=== PATIENT | male | born 1975 | race Two or more races ===

== ENCOUNTER 2024-05-11 12:51 | Emergency (ER) | payer OTHER ==
[~2024-05-11] VITALS: Ht 167.6 cm; Wt 108.9 kg
[~2024-05-11 12:51] MED LIST: INTESTINEX680 M1 PO; LEVSIN/SL0.125 MG SL; NEURONTIN300 MG PO; OMEPRAZOLE20 MG
[2024-05-11] MEDS ORDERED: 0.9 % SODIUM CHLORIDE 1,000 ML IV SCH (13:30)
[2024-05-11] MEDS ORDERED: BARIUM SULFATE 450 ML ORAL.SUSP PO ONE (13:42)
[2024-05-11 14:11] LABS: HEMATOCRIT 34.4 % (39.0-48.0); HEMOGLOBIN 11.5 g/dL (13-16.00); MEAN CELL VOLUME 87.2 fL (80.0-100.00); MEAN CORPUSCULAR HGB CONC 33.3 g/dl (32.0-36.0); PLATELET COUNT 251 K/uL (150-450); RED BLOOD COUNT 3.95 M/uL (4.00-6.00); RED CELL DISTRIBUTION WIDTH 14.1 % (11.5-14.5)
[2024-05-11 14:39] LABS: INR 1.02; PARTIAL THROMBOPLASTIN TIME 25.3 SECONDS (22.0-34.0); PROTHROMBIN TIME 11.1 SECONDS (9.0-11.5)
[2024-05-11 14:44] LABS: CALCIUM 8.8 mg/dL (8.5-10.1); CREATININE SERUM 0.98 mg/dL (0.70-1.30); GFR 81.63; POTASSIUM 4.67 mEq/L (3.5-5.1)
[2024-05-11 16:06] LABS: PH,URINE 5.5 (5.0-8.0); URINE APPEARANCE Clear; URINE BILIRRUBIN Negative (NEGATIVE); URINE BLOOD Negative; URINE COLOR Yellow; URINE GLUCOSE Negative (NEGATIVE); URINE KETONE Negative (NEGATIVE); URINE LEUKOCYTE Negative; URINE NITRATE Negative; URINE PROTEIN Trace (NEGATIVE)
[2024-05-11 16:10] LABS: URINE BACTERIA 58.7 uL (0.0-1933); URINE EPITHELIAL CELLS 22.3 uL (0.0-38.8); URINE RBC 2.6 uL (0.0-20.8); URINE WBC 76.7 uL (0.0-23.2)
[2024-05-11 16:53] LABS: URINE CAST 0.29 uL (0.0-1.40)
== END 2024-05-11 20:36 | disposition home or self-care (01) ==
LOC: ER 12:53
PROVIDERS: Emergency Medicine
DX: K62.5 Hemorrhage of anus and rectum (principal)
CPT/HCPCS: 36415; 74177; Q9965